=== PATIENT | female | born 1955 | race Caucasian/White ===

== ENCOUNTER 2019-06-27 08:57 | Inpatient (IN) | payer MEDICARE ==
[~2019-06-27] VITALS: Ht 157.5 cm; Wt 102.9 kg
[2019-06-27] VITALS (11 sets, daily range): BP systolic 70–95; BP diastolic 35–53
[2019-06-27] MEDS ORDERED: ONDANSETRON HCL 4 MG/2 ML VIAL ONE (09:22)
[2019-06-27] MEDS ORDERED: HYDROMORPHONE 1 MG/1 ML AMP ONE (09:23)
[2019-06-27 09:42] LABS: BASOPHILS % (AUTO) 0.4 % (0.0-5.0); EOSINOPHILS % (AUTO) 0.2 % (0.0-8.0); HEMATOCRIT 37.4 % (36-48); LYMPHOCYTES % (AUTO) 9.2 % (21.0-51.0); MEAN CORPUSCULAR HEMOGLOBIN 32.2 pg (27.0-33.0); MEAN CORPUSCULAR HGB CONC 33.7 g/dL (32.0-36.0); MEAN CORPUSCULAR VOLUME 95.7 fL (79-99); MONOCYTES % (AUTO) 9.8 % (3.0-13.0); NEUTROPHILS % (AUTO) 79.9 % (40.0-77.0); PLATELET COUNT (AUTO) 164 K/uL (130-400); RED BLOOD CELL COUNT(AUTO) 3.91 MIL/uL (4.00-5.50); RED CELL DISTRIBUTION WIDTH 13.8 % (11.0-15.5)
[2019-06-27 09:54] LABS: CREATININE 4.5 mg/dL (0.5-1.5); POTASSIUM 3.8 mmol/L (3.5-5.1)
[2019-06-27 09:58] LABS: ALBUMIN 3.6 g/dL (3.5-5.0); BILIRUBIN,TOTAL 0.5 mg/dL (0.2-1.0); TOTAL PROTEIN, SERUM 7.3 g/dL (6.0-8.3)
[2019-06-27 11:58] LABS: APPEARANCE,URINE Cloudy (CLEAR); BILIRUBIN,URINE Negative (NEGATIVE); COLOR,URINE Dark Yellow (YELLOW); GLUCOSE, URINE (UA) Negative (NEGATIVE); KETONES,URINE Negative (NEGATIVE); LEUKOCYTE ESTERASE ,URINE Small (NEGATIVE); NITRATE,URINE Negative (NEGATIVE); OCCULT BLOOD,URINE Negative (NEGATIVE); PROTEIN,URINE Negative (NEGATIVE)
[2019-06-27] MEDS ORDERED: SODIUM CHLORIDE 0.9% 1000ML 2,000 ML IV ONE (12:09)
[2019-06-27] MEDS ORDERED: CEFTRIAXONE SODIUM 1 GM ONE (12:10)
[2019-06-27] MEDS ORDERED: ONDANSETRON HCL 4 MG/2 ML VIAL IVP PRN (12:15)
[2019-06-27] MEDS ORDERED: ACETAMINOPHEN 325 MG TAB PO PRN (12:15)
[2019-06-27] MEDS ORDERED: HYDROCODONE/ACETAMINOPHEN 5/325 MG TAB PO PRN ×2 (12:15)
[2019-06-27] MEDS ORDERED: NALOXONE HCL 0.4 MG/1 ML ML ONE ×2 (12:36→14:36)
[2019-06-27 12:45] LABS: AMORPHOUS SEDIMENT,UR Rare /LPF (None Seen); BACTERIA,URINE Rare /HPF (None Seen); HYALINE CASTS, URINE 0-1 /LPF (0-1 /LPF); MUCUS,URINE Rare LPF (None Seen); RBC,URINE 0-1 /HPF (0-1); SQUAMOUS EPITHELIAL CELL,UR Rare /HPF (0-2); WBC,URINE 0-1 /HPF (0-1)
[2019-06-27] MEDS ORDERED: NALOXONE HCL 0.4 MG/1 ML ML IVP SCH ×4 (12:45→18:00)
[2019-06-27] MEDS ORDERED: HYDROMORPHONE 1 MG/1 ML AMP IVP PRN (13:00)
[2019-06-27] MEDS ORDERED: SODIUM CHLORIDE 0.9% 1000ML 1,000 ML IV SCH (13:30)
[2019-06-27] MEDS ORDERED: SODIUM CHLORIDE 0.9% 1000ML 1,000 ML IV ONE (14:17)
--- NOTE | 2019-06-27 17:44 | NUR ---
PT ARRIVED FROM ED EXTREMELY DROWSY AND DIFFICULT TO AROUSE; SHE WILL AWAKE TO PAIN AND SHAKING HER; SHE HAS LOW RESPIRATORY RATE IN THE 14'S SO I HAVE PLACED A CONT. PULSE OX ON HER AND SHE WILL BE IN THE LOW 90'S THEN DROP INTO THE 80'S AND HAVE TO BE SHAKEN TO TAKE A DEEP BREATH; DR REYES IS HERE TO SEE HER NOW.
--- NOTE | 2019-06-27 17:45 | NUR ---
IN REGARDS TO PT'S ADMISSION ASSESSMENT SHE IS TO LETHARGIC TO ANSWER ANY QUESTIONS; I CALLED HER SON AND HE STATED THAT HE DID NOT KNOW MUCH ABOUT HER MEDICAL HX OR MEDICATIONS BECAUSE SHE LIVED IN [place] AND JUST RECENTLY MOVED HERE; HE DID STATE THAT HE WOULD GO TO HER HOUSE GET THE MEDICATION BOTTLES SO THAT WE COULD CREATE A HOME MED LIST; HE WILL CALL WITH THE INFO.
--- NOTE | 2019-06-27 17:46 | NUR ---
I HAVE GIVEN THE PATIENT 0.4 MG OF NARCAN ORDERED BY DR REYES DUE TO HER EXTREME LETHARGY AND DROPPING O2 SAT FROM POOR RESPIRATORY EFFORT; SHE DROPS INTO TO THE MID 80'S O2 SAT ON 4L NC; WHEN I SHAKE AND AROUSE HER SHE WILL RAISE BACK UP INTO THE LOW 90'S;
--- NOTE | 2019-06-27 18:00 | NUR ---
AFTER RECEIVING NARCAN PT DID BECOME MORE AROUSABLE AND HAD SAT'S IN THE HIGH 90'S DR LOPEZ FROM THE ED HAS SEEN HER NOW AFTER THE NARCAN AND HE DOESN'T BELEIVE SHE NEEDS TO BE INTUBATED AT THIS TIME BUT DOES BELEIVE SHE SHOULD BE TRANSFERED TO THE UNIT AND PERHAPS BE ON A NARCAN DRIP; DR REYES IS ALSO AT PT'S BEDSIDE AND STATED TO CALL DR Dulce Maria LYNN CRITICAL CARE MD BACK AND INFORM HIM OF DR LOPEZ RECOMENDATIONS.
[2019-06-27 18:26] LABS: ABG BASE EXCESS -12.5 mmol/L (-2.0-3.0); ABG HCO3 14.4 mmol/L (21.0-28.0); ABG OXYGEN SATURATION 96.6 % (95.0-99.0); ABG PCO2 37 mmHg (32-45)
--- NOTE | 2019-06-27 18:30 | NUR ---
I HAVE SPOKEN TO DR Dulce Maria LYNN ON THE PHONE AND GIVEN HIM ABG RESULTS AND VS BP 120/50 HR FROM 40 IMMEDIATLY AFTER RECEIVING NARCAN TO 115; RESP RATE 12 TO 14; HE STATED NOT TO INTIBATE AT THIS TIME OR START NARCAN DRIP BUT TO PLACE ON BIPAP AND MONITOR IN UNIT; THAT PT IS IN METABOLIC ACIDOSIS; I HAVE ORDERED THE FULL ARRAY OF LABS HE REQUESTED AND VENOUS DOPPLERS OF BLE, NPO STATUS, NS AT 100CC/HR, NO ANTICOAGULANTS AT THIS TIME BUT TO PLACE SCD'S; I HAVE ATTEMPTED TO CALL REPORT TO ICU BUT WAS TOLD NO ONE AVAILABLE TO TAKE REPORT AT THIS TIME AND SOME ONE WILL CALL ME BACK WHEN AVAILABLE; I AM STAYING AT THE PT'S BEDSIDE TO AROUSE HER WHEN O2 SAT'S DROP; I HAVE SPOKEN TO HER SON ON THE PHONE AND INFORMED HIM THAT HIS MOTHER IS BEING TRANSFERED TO THE ICU.
[2019-06-27] MEDS ORDERED: ZOSYN 3.375GM+NS 50ML 50 ML IV SCH (18:45)
[2019-06-27 19:03] LABS: BASOPHILS % (AUTO) 0.2 % (0.0-5.0); EOSINOPHILS % (AUTO) 0.1 % (0.0-8.0); HEMATOCRIT 32.3 % (36-48); LYMPHOCYTES % (AUTO) 12.8 % (21.0-51.0); MEAN CORPUSCULAR HEMOGLOBIN 32.7 pg (27.0-33.0); MEAN CORPUSCULAR HGB CONC 33.4 g/dL (32.0-36.0); MEAN CORPUSCULAR VOLUME 97.9 fL (79-99); MONOCYTES % (AUTO) 10.3 % (3.0-13.0); NEUTROPHILS % (AUTO) 76.3 % (40.0-77.0); PLATELET COUNT (AUTO) 106 K/uL (130-400); RED CELL DISTRIBUTION WIDTH 13.8 % (11.0-15.5); WHITE BLOOD COUNT (AUTO) 9.4 K/uL (4.8-10.8)
[2019-06-27 19:14] LABS: CARBON DIOXIDE 23 mmol/L (21-32); CHLORIDE 102 mmol/L (101-111); CREATININE 3.7 mg/dL (0.5-1.5); GLOMERULAR FILTR. RATE CALC 13 mL/min (>60); GLUCOSE,RANDOM 147 mg/dL (70-105); POTASSIUM 4.2 mmol/L (3.5-5.1); SODIUM SERUM 134 mmol/L (136-145); UREA NITROGEN, BLOOD 55 mg/dL (7-18)
[2019-06-27] MEDS ORDERED: PHARMACY COMMUNICATION MISC SCH (19:15)
--- NOTE | 2019-06-27 19:19 | NUR ---
PT HAS BEEN SEEN BY ED DR LOPEZ AND I HAVE SPOKEN ON THE PHONE 2X TO DR Dulce Maria LYNN; I HAVE RECEIVED ORDERS TO TRANSFER TO ICU;
[2019-06-27 19:29] LABS: ALANINE AMINOTRANSFERASE 20 U/L (12-78); ALBUMIN 2.7 g/dL (3.5-5.0); ASPARTATE AMINOTRANSFERASE 22 U/L (10-37); BILIRUBIN,TOTAL 0.3 mg/dL (0.2-1.0); MYOGLOBIN 509 ng/mL (10-92); TOTAL PROTEIN, SERUM 5.8 g/dL (6.0-8.3); TROPONIN I < 0.04 ng/mL (0.00-0.06)
[2019-06-27 19:31] LABS: CREATINE KINASE, TOTAL 404 U/L (21-232)
--- NOTE | 2019-06-27 19:39 | NUR ---
TRANSFER REPORT CALLED TO GM IN ICU.
--- NOTE | 2019-06-27 19:55 | NUR ---
TRANSFER PT TRANSFERRED TO ROOM DAY SURGERY 14 - ICU VIA WITH [address] PT CONNECTED TO BEDSIDE MONITOR, PLACED ON BIPAP, ASSESSMENT COMPLETED, SEE FLOW SHEET. PT ORIENTED TO ROOM.
--- NOTE | 2019-06-27 20:03 | NUR ---
PT HAS BEEN TRANSFERED TO ICU BED 14; NIHARIKA WORRELL TOOK OVER PT CARE, PT WAS BE PLACED ON BIPAP MACHINE IMMEDIATLY UPON ARRIVAL INTO UNIT;
--- NOTE | 2019-06-27 20:33 | NUR ---
IN REGARDS TO ORTHOPEDIC CONSULT I HAVE INFORMED DR COLLINS OF CONSULT AND SUBSUQUENT TRASFER TO THE UNIT AND HE STATED HE WOULD SEE THE PATIENT TOMORROW
--- NOTE | 2019-06-27 20:40 | NUR ---
DR LEAH LYNN MADE AWARE OF ABG'S, SEE ORDERS FOR IV FLUIDS AND MORNING LABS
[2019-06-27] MEDS ORDERED: SODIUM BICARB 50MEQ 50ML VIAL IV STA (20:55)
[2019-06-27] MEDS ORDERED: LIDOCAINE HCL-MPF 1% 2ML VIAL IV PRN (21:00)
[2019-06-27] MEDS ORDERED: MAGNESIUM 2GM PREMIX 50ML 50 ML IV PRN (21:00)
[2019-06-27] MEDS ORDERED: SODIUM CHLORIDE 0.9% 500ML 500 ML IV ONE (21:00)
[2019-06-27] MEDS ORDERED: POTASSIUM CHLORIDE 20MEQ/100ML 100 ML IV PRN (21:00)
[2019-06-27] MEDS: SODIUM BICARB 8.4% 50ML SYRING 150 MEQ in DEXTROSE 5%-WATER 1,000 ML IV SCH ×2 (21:46→23:00)
[2019-06-28] VITALS (58 sets, daily range): BP systolic 81–163; BP diastolic 48–126
--- NOTE | 2019-06-28 01:00 | NUR ---
ANABELA MO NP MADE AWARE OF BP. SEE ORDERS FOR FERNANDO
[2019-06-28] MEDS ORDERED: PHENYLEPHRINE HCL 10 MG/ML 1ML VIAL IV ONE ×2 (01:21→02:37)
[2019-06-28] MEDS ORDERED: SODIUM CHLORIDE 0.9% 500ML 500 ML IV ONE (02:38)
[2019-06-28 03:34] LABS: HEMATOCRIT 32.4 % (36-48); MEAN CORPUSCULAR HEMOGLOBIN 32.2 pg (27.0-33.0); MEAN CORPUSCULAR HGB CONC 32.7 g/dL (32.0-36.0); MEAN CORPUSCULAR VOLUME 98.5 fL (79-99); PLATELET COUNT (AUTO) 100 K/uL (130-400); RED BLOOD CELL COUNT(AUTO) 3.29 MIL/uL (4.00-5.50); RED CELL DISTRIBUTION WIDTH 13.9 % (11.0-15.5)
[2019-06-28 03:45] LABS: BAND NEUTROPHILS % (MANUAL) 6 % (0-2); LYMPHOCYTES % (MANUAL) 13 % (22-44); MAN.DIFF COMMENT-IMPRESSION MANUAL DIFFERENTIAL; MONOCYTES % (MANUAL) 6 % (2-9); PLATELET MORPHOLOGY COMMENT SLIGHTLY DECREASED; SEGMENTED NEUTROPHILS % 75 % (40-70)
[2019-06-28 03:51] LABS: ALANINE AMINOTRANSFERASE 16 U/L (12-78); ALBUMIN 2.5 g/dL (3.5-5.0); ASPARTATE AMINOTRANSFERASE 19 U/L (10-37); BILIRUBIN,TOTAL 0.3 mg/dL (0.2-1.0); CARBON DIOXIDE 26 mmol/L (21-32); CHLORIDE 104 mmol/L (101-111); CREATINE KINASE, TOTAL 362 U/L (21-232); CREATININE 3.2 mg/dL (0.5-1.5); GLOMERULAR FILTR. RATE CALC 16 mL/min (>60); GLUCOSE,RANDOM 154 mg/dL (70-105); MYOGLOBIN 223 ng/mL (10-92); PHOSPHORUS 4.9 mg/dL (2.5-4.9); POTASSIUM 3.8 mmol/L (3.5-5.1); SODIUM SERUM 136 mmol/L (136-145); TOTAL PROTEIN, SERUM 5.5 g/dL (6.0-8.3); TROPONIN I < 0.04 ng/mL (0.00-0.06); UREA NITROGEN, BLOOD 53 mg/dL (7-18)
[2019-06-28 04:01] LABS: AMMONIA 19 umol/L (11-32)
[2019-06-28] MEDS: PHENYLEPHRINE HCL 10 MG in SODIUM CHLORIDE 0.9% 250 ML IV PRN ×3 (06:54→12:23)
[2019-06-28] MEDS ORDERED: LINEZOLID 600 MG/ISO-OSM 300 ML IV SCH (07:00)
[2019-06-28 07:05] LABS: ABG BASE EXCESS -7.3 mmol/L (-2.0-3.0); ABG HCO3 22.1 mmol/L (21.0-28.0); ABG OXYGEN SATURATION 97.3 % (95.0-99.0); ABG PCO2 61 mmHg (32-45)
[2019-06-28] MEDS: ZOSYN 3.375GM+NS 50ML 50 ML IV SCH ×2 (08:10→20:03)
[2019-06-28] MEDS: SODIUM BICARB 8.4% 50ML SYRING 150 MEQ in DEXTROSE 5%-WATER 1,000 ML IV SCH (08:10)
[2019-06-28] MEDS: FAMOTIDINE 20MG TAB 20 MG TAB PO SCH (08:12)
[2019-06-28] MEDS ORDERED: NALOXONE HCL 0.4 MG/1 ML ML ONE (08:34)
[2019-06-28] MEDS ORDERED: NALOXONE HCL 0.4 MG/1 ML ML IVP SCH (08:45)
[2019-06-28] MEDS ORDERED: ENOXAPARIN SODIUM 30 MG/0.3 ML SQ SCH (09:00)
[2019-06-28] MEDS ORDERED: NALOXONE HCL IV SCH (09:00)
[2019-06-28] MEDS ORDERED: SODIUM CHLORIDE 0.9% IV SCH (09:00)
[2019-06-28 09:10] LABS: ABG BASE EXCESS -6.3 mmol/L (-2.0-3.0); ABG HCO3 21.7 mmol/L (21.0-28.0); ABG OXYGEN SATURATION 97.4 % (95.0-99.0); ABG PCO2 52 mmHg (32-45)
--- NOTE | 2019-06-28 09:30 | NUR ---
patient transferred to room 219 due to pending covid testing as ordered by dr meyer. Bedside report given to NIHARIKA Chou. Patient's son made aware of patient transfer via phone.
[2019-06-28] MEDS ORDERED: SODIUM CHLORIDE 0.9% IV PRN (09:45)
[2019-06-28] MEDS ORDERED: PHENYLEPHRINE HCL IV PRN (09:45)
[2019-06-28] MEDS: NALOXONE HCL IV SCH ×2 (11:50→17:59)
[2019-06-28] MEDS: SODIUM CHLORIDE 0.9% IV SCH ×2 (11:50→17:59)
[2019-06-28] MEDS: SODIUM CHLORIDE 0.9% 1000ML 1,000 ML IV SCH (16:15)
[2019-06-28] MEDS ORDERED: COMPOUND IV MISC 1 EACH IVSOLN MISC PRN (16:30)
[2019-06-28 16:35] LABS: AMPHET/METH SCREEN,URINE NEGATIVE (NEGATIVE); BARBITURATE SCREEN, URINE NEGATIVE (NEGATIVE); BENZODIAZEPINES SCREEN,URINE NEGATIVE (NEGATIVE); CANNABINOID SCREEN,URINE NEGATIVE (NEGATIVE); COCAINE SCREEN,URINE NEGATIVE (NEGATIVE); OPIATE SCREEN,URINE POSITIVE (NEGATIVE); PHENCYCLIDINE SCREEN,URINE NEGATIVE (NEGATIVE)
[2019-06-28] MEDS: IRON SUCROSE COMPLEX 100 MG in SODIUM CHLORIDE 0.9% 50 ML IV SCH (18:00)
[2019-06-28] MEDS: NICOTINE 21 MG/ 24 HR PATCH TD SCH (18:00)
[2019-06-28] MEDS: LINEZOLID 600 MG/ISO-OSM 300 ML IV SCH (20:03)
[2019-06-28] MEDS ORDERED: KETOROLAC TROMETHAMINE 15MG/ML IV SCH (22:45)
[2019-06-29] VITALS (12 sets, daily range): BP systolic 83–168; BP diastolic 45–117
[2019-06-29] MEDS ORDERED: HYDROMORPHONE 1 MG/1 ML AMP IVP ONE
[2019-06-29] MEDS ORDERED: HYDROMORPHONE HCL 0.5 MG/0.5 ML ML ONE (00:40)
[2019-06-29 06:32] LABS: BASOPHILS % (AUTO) 0.2 % (0.0-5.0); EOSINOPHILS % (AUTO) 0.7 % (0.0-8.0); HEMATOCRIT 31.3 % (36-48); LYMPHOCYTES % (AUTO) 21.6 % (21.0-51.0); MEAN CORPUSCULAR HEMOGLOBIN 32.7 pg (27.0-33.0); MEAN CORPUSCULAR HGB CONC 33.5 g/dL (32.0-36.0); MEAN CORPUSCULAR VOLUME 97.5 fL (79-99); MONOCYTES % (AUTO) 11.7 % (3.0-13.0); NEUTROPHILS % (AUTO) 65.6 % (40.0-77.0); PLATELET COUNT (AUTO) 89 K/uL (130-400); RED BLOOD CELL COUNT(AUTO) 3.21 MIL/uL (4.00-5.50); RED CELL DISTRIBUTION WIDTH 13.8 % (11.0-15.5); WHITE BLOOD COUNT (AUTO) 5.7 K/uL (4.8-10.8)
[2019-06-29 06:54] LABS: ALBUMIN 2.2 g/dL (3.5-5.0); BILIRUBIN,TOTAL 0.3 mg/dL (0.2-1.0); POTASSIUM 3.9 mmol/L (3.5-5.1); TOTAL PROTEIN, SERUM 5.4 g/dL (6.0-8.3)
[2019-06-29] MEDS: SODIUM BICARB 8.4% 50ML SYRING 150 MEQ in DEXTROSE 5%-WATER 1,000 ML IV SCH (07:30)
[2019-06-29] MEDS: SODIUM CHLORIDE 0.9% 1000ML 1,000 ML IV SCH (08:17)
[2019-06-29] MEDS: IRON SUCROSE COMPLEX 100 MG in SODIUM CHLORIDE 0.9% 50 ML IV SCH (08:17)
[2019-06-29] MEDS: LINEZOLID 600 MG/ISO-OSM 300 ML IV SCH (08:18)
[2019-06-29] MEDS: ZOSYN 3.375GM+NS 50ML 50 ML IV SCH (08:18)
[2019-06-29] MEDS: FAMOTIDINE 20MG TAB 20 MG TAB PO SCH (08:19)
[2019-06-29] MEDS: NICOTINE 21 MG/ 24 HR PATCH TD SCH (09:00)
[2019-06-29] MEDS ORDERED: KETOROLAC TROMETHAMINE 30MG/ML IVP PRN (09:30)
[2019-06-29] MEDS ORDERED: KETOROLAC TROMETHAMINE 30MG/ML IM PRN (10:45)
[2019-06-29] MEDS ORDERED: KETOROLAC TROMETHAMINE 30MG/ML IV PRN (11:30)
[2019-06-29 13:06] LABS: ABG BASE EXCESS -4.5 mmol/L (-2.0-3.0); ABG HCO3 23.5 mmol/L (21.0-28.0); ABG OXYGEN SATURATION 96.5 % (95.0-99.0); ABG PCO2 57 mmHg (32-45)
[2019-06-29] MEDS ORDERED: PREGABALIN 75 MG CAPSULE PO SCH (14:00)
--- NOTE | 2019-06-29 14:13 | NUR ---
Against Medical Advice Patient requesting to sign against medical advise. I advised patient to stay and finish her treatment. Ms. Maxwell requesting to sign AMA form despite me and Dr. Lyn strong advise to stay.
[2019-06-30] MEDS ORDERED: ENOXAPARIN SODIUM 30 MG/0.3 ML SQ SCH (09:00)
--- NOTE | 2019-07-04 15:27 | NUR ---
INFECTION CONTROL-NOTIFIED PATIENT OF NEGATIVE RESULTS ON 07/03/19
== END 2019-06-29 14:30 | disposition left against medical advice (07) | DRG 917 ==
LOC: EDH 08:57 → EDHIP 11:49 → 3DH 16:21 → DAHIP 19:56 → OBSVTOIN 20:36 → 2CH 06-28 09:23
PROVIDERS: ADMIT Internal Medicine; ATTEND Internal Medicine
PROC: 5A09357 Assistance with Respiratory Ventilation, Less than 24 Consecutive Hours, Continuous Positive Airway Pressure (ICD-10-PCS; principal; 2019-06-27)
PROC: 5A09357 Assistance with Respiratory Ventilation, Less than 24 Consecutive Hours, Continuous Positive Airway Pressure (ICD-10-PCS; 2019-06-28)
PROC: 4A00X4Z Measurement of Central Nervous Electrical Activity, External Approach (ICD-10-PCS; 2019-06-29)
DX: T40.601A Poisoning by unspecified narcotics, accidental (unintentional), initial encounter (principal); G92 Toxic encephalopathy; J96.02 Acute respiratory failure with hypercapnia; J96.01 Acute respiratory failure with hypoxia; N17.9 Acute kidney failure, unspecified; E87.1 Hypo-osmolality and hyponatremia; E87.4 Mixed disorder of acid-base balance; E44.0 Moderate protein-calorie malnutrition; M62.82 Rhabdomyolysis; Z68.41 Body mass index [BMI] 40.0-44.9, adult; D50.9 Iron deficiency anemia, unspecified; E11.41 Type 2 diabetes mellitus with diabetic mononeuropathy; E66.01 Morbid (severe) obesity due to excess calories; E78.5 Hyperlipidemia, unspecified; F11.10 Opioid abuse, uncomplicated; F17.200 Nicotine dependence, unspecified, uncomplicated; G89.4 Chronic pain syndrome; I10 Essential (primary) hypertension; J45.909 Unspecified asthma, uncomplicated; S82.842A Displaced bimalleolar fracture of left lower leg, initial encounter for closed fracture; G20 Parkinson's disease; E86.9 Volume depletion, unspecified; W19.XXXA Unspecified fall, initial encounter; Z20.828 Contact with and (suspected) exposure to other viral communicable diseases; Y93.89 Activity, other specified; Y92.098 Other place in other non-institutional residence as the place of occurrence of the external cause; Y99.8 Other external cause status; Z79.891 Long term (current) use of opiate analgesic; Z90.710 Acquired absence of both cervix and uterus; Z90.49 Acquired absence of other specified parts of digestive tract; Z88.8 Allergy status to other drugs, medicaments and biological substances; Z03.818 Encounter for observation for suspected exposure to other biological agents ruled out; Y92.009 Unspecified place in unspecified non-institutional (private) residence as the place of occurrence of the external cause
CPT/HCPCS: 36415; 36600; 70450; 71045; 73610; 73700; 76770; 80053; 80305; 81001; 82140; 82435; 82550; 82570; 82803; 82947; 82948; 83540; 83550; 83605; 83735; 83874; 84100; 84132; 84295; 84300; 84443; 84484; 85018; 85025; 87040; 87088; 87633; 87635; 93005; 93306; 93356; 93880; 93970; 94660; 95819; G0378; J0696; J1170; J1650; J1756; J1885; J2020; J2310; J2370; J2405; J2543; J3490; J7030; J7040; J7050; J7070

== ENCOUNTER 2020-10-27 12:37 | Emergency (ER) | payer MEDICARE, OTHER ==
[~2020-10-27] VITALS: Ht 165.1 cm; Wt 85.3 kg
[2020-10-27 15:28] LABS: BASOPHILS % (AUTO) 0.5 % (0.0-5.0); EOSINOPHILS % (AUTO) 0.6 % (0.0-8.0); HEMATOCRIT 36.4 % (36-48); LYMPHOCYTES % (AUTO) 25.4 % (21.0-51.0); MEAN CORPUSCULAR HEMOGLOBIN 28.5 pg (27.0-33.0); MEAN CORPUSCULAR HGB CONC 32.1 g/dL (32.0-36.0); MEAN CORPUSCULAR VOLUME 88.8 fL (79-99); MONOCYTES % (AUTO) 9.4 % (3.0-13.0); NEUTROPHILS % (AUTO) 63.6 % (40.0-77.0); PLATELET COUNT (AUTO) 259 K/uL (130-400); RED CELL DISTRIBUTION WIDTH 18.3 % (11.0-15.5); WHITE BLOOD COUNT (AUTO) 13.7 K/uL (4.8-10.8)
[2020-10-27 15:40] LABS: CREATININE 1.3 mg/dL (0.5-1.5); POTASSIUM 3.5 mmol/L (3.5-5.1)
[2020-10-27 15:44] LABS: ALBUMIN 3.6 g/dL (3.5-5.0); BILIRUBIN,TOTAL 0.5 mg/dL (0.2-1.0); TOTAL PROTEIN, SERUM 7.4 g/dL (6.0-8.3)
[2020-10-27] MEDS ORDERED: ONDANSETRON 4MG INJ IVP ONE (16:00)
[2020-10-27] MEDS ORDERED: MORPHINE 2 MG SYG IVP ONE (16:00)
[2020-10-27] MEDS ORDERED: 0.9%NACL 1000ML 1,000 ML IV SCH (16:00)
[2020-10-27 16:15] LABS: APPEARANCE,URINE Clear (CLEAR); BILIRUBIN,URINE Negative (NEGATIVE); COLOR,URINE Dark Yellow (YELLOW); GLUCOSE, URINE (UA) Negative (NEGATIVE); KETONES,URINE Trace mg/dL (NEGATIVE); LEUKOCYTE ESTERASE ,URINE Trace (NEGATIVE); NITRATE,URINE Negative (NEGATIVE); OCCULT BLOOD,URINE Negative (NEGATIVE); PROTEIN,URINE POS 2+ mg/dL (NEGATIVE)
[2020-10-27 16:30] LABS: BACTERIA,URINE Few /HPF (None Seen); MUCUS,URINE Few LPF (None Seen); SQUAMOUS EPITHELIAL CELL,UR Few /HPF (0-2)
[2020-10-27] MEDS ORDERED: MAGNESIUM HYDROXIDE 30 ML/UDCUP ONE (16:34)
[2020-10-27] MEDS ORDERED: LIDOCAINE HCL 2% VISCOUS 15 ML UDCUP ONE (16:34)
[2020-10-27] MEDS ORDERED: DICYCLOMINE 20MG (10MG/ML) AMP IM STA (17:33)
[2020-10-27] MEDS ORDERED: DICY20TA2 PO (17:39)
[2020-10-27] MEDS ORDERED: FAMOTIDINE 20MG TAB ONE (18:00)
[2020-10-27] MEDS ORDERED: FAMOTIDINE 20MG TAB PO ONE (18:00)
[2020-10-27] MEDS ORDERED: DICYCLOMINE 20MG (10MG/ML) AMP IM ONE (18:01)
[2020-10-27 18:57] VITALS: BP 133/68
== END 2020-10-27 18:58 | disposition home or self-care (01) ==
LOC: EDH 12:37
DX: K52.9 Noninfective gastroenteritis and colitis, unspecified (principal); J44.9 Chronic obstructive pulmonary disease, unspecified; E11.9 Type 2 diabetes mellitus without complications; E66.9 Obesity, unspecified; Z20.822 Contact with and (suspected) exposure to COVID-19; I10 Essential (primary) hypertension; F17.210 Nicotine dependence, cigarettes, uncomplicated; Z90.710 Acquired absence of both cervix and uterus; Z68.31 Body mass index [BMI] 31.0-31.9, adult
CPT/HCPCS: 36415; 74176; 80053; 81001; 82150; 83690; 85025; 87635; 87804 ×2; 96361 ×2; 96372; 96374; 96375; 99284; C9803; J0500; J2405; J7030